=== PATIENT | male | born 2000 | race American Indian/Alaskan Native ===

== ENCOUNTER 2020-10-06 22:21 | Emergency (ER) | payer SELFPAY ==
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
[2020-10-07 01:42] VITALS: BP 122/62
== END 2020-10-07 01:44 | disposition home or self-care (01) ==
LOC: ED 22:21
DX: T25.222A Burn of second degree of left foot, initial encounter (principal); T25.292A Burn of second degree of multiple sites of left ankle and foot, initial encounter; Z79.899 Other long term (current) drug therapy; T31.0 Burns involving less than 10% of body surface; X08.8XXA Exposure to other specified smoke, fire and flames, initial encounter; Y93.89 Activity, other specified; Y92.89 Other specified places as the place of occurrence of the external cause; Y99.0 Civilian activity done for income or pay
CPT/HCPCS: 99282

== ENCOUNTER 2020-10-10 16:51 | Emergency (ER) | payer SELFPAY ==
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
== END 2020-10-10 17:54 | disposition home or self-care (01) ==
LOC: ED 16:51
CPT/HCPCS: 99281